=== PATIENT | male | born 1960 | race Caucasian/White ===

== ENCOUNTER 2018-04-15 23:38 | Emergency (ER) | payer MEDICAID, MEDICARE, OTHER ==
[2018-04-15 23:38] VITALS: BMI 35.4
[2018-04-16 00:03] VITALS: RESP 18; O2SAT 95
--- NOTE | 2018-04-16 00:18 | ED PDOC ---
Arrival/HPI - General Chief Complaint: Upper Extremity Problem/Injury Time Seen by Provider: 04/16/18 00:12 Historian: Patient - History of Present Illness Narrative History of Present Illness (Text): 04/16/18 00:14 This 57 yo male presents to this ED c/o right upper extremity pain x 4 days. Patient stated he tripped and fell down causing pain. Pain radiates from right hand to right shoulder. Patient is requesting x-rays. Patient denies syncope, dizziness, cp, abdominal pain, sob, skin abrasion, recent travel, weakness, paresthesias, or abnormal gait. Time/Duration: Other (see hpi) Quality: Aching Context: Home Past Medical History - Provider Review Nursing Documentation Reviewed: Yes - Infectious Disease Hx of Infectious Diseases: None - Cardiac Hx Cardiac Disorders: No Hx Pacemaker: Yes - Pulmonary Hx Respiratory Disorders: Yes Hx Chronic Obstructive Pulmonary Disease (COPD): Yes Other/Comment: history of trach placement for GBS - Neurological Other/Comment: guillain barre syndrome - Endocrine/Metabolic Hx Diabetes Mellitus Type 2: Yes - Psychiatric Hx Substance Use: No - Surgical History Other/Comment: tracheostomy - Anesthesia Hx Anesthesia: Yes Hx Anesthesia Reactions: No Hx Malignant Hyperthermia: No Family/Social History - Physician Review Nursing Documentation Reviewed: Yes Family/Social History: Other (noncontributory) Smoking Status: Heavy Smoker > 10 Cigarettes Daily Hx Alcohol Use: No Hx Substance Use: No Allergies/Home Meds Allergies/Adverse Reactions: Allergies No Known Allergies Allergy (Verified 04/16/18 02:12) Review of Systems - Review of Systems Constitutional: Normal. absent: Fatigue, Weight Change, Fevers, Night Sweats Eyes: Normal ENT: Normal Respiratory: Normal Cardiovascular: Normal Gastrointestinal: Normal Genitourinary Male: Normal Musculoskeletal: Other (see hpi) Skin: Normal Neurological: Normal Endocrine: Normal Hemo/Lymphatic: Normal Psychiatric: Normal Physical Exam Vital Signs Temp Pulse Resp BP Pulse Ox 04/16/18 01:35 98.1 F 68 18 116/60 95 04/15/18 23:58 98.7 F 69 18 117/69 95 Temperature: Afebrile Blood Pressure: Normal Pulse: Regular Respiratory Rate: Normal Appearance: Positive for: Well-Appearing, Non-Toxic, Comfortable Pain Distress: None Mental Status: Positive for: Alert and Oriented X 3 - Systems Exam Head: Present: Atraumatic, Normocephalic, Other (no esquivel sign. no raccoon sign) Pupils: Present: PERRL, Other (no hyphema) Extroacular Muscles: Present: EOMI. No: Entrapment Conjunctiva: Present: Normal Ears: Present: Normal, NORMAL TM, Other (no hemotympanum) Mouth: Present: Moist Mucous Membranes, Normal Lips, Normal Tounge. No: Drooling Pharnyx: Present: Normal. No: ERYTHEMA, EXUDATE, TONSILS ENLARGED Nose (External): Present: Atraumatic Nose (Internal): Present: Normal Inspection Neck: Present: Normal Range of Motion. No: Meningeal Signs, MIDLINE TENDERNESS Respiratory/Chest: No: Tender to Palpation Upper Extremity: Present: Normal Inspection, NORMAL PULSES, Neurovascularly Intact, Capillary Refill < 2s. No: Cyanosis, Edema, Normal ROM (decreased ROM righ upper extremity due to pain) Lower Extremity: Present: Normal Inspection. No: Edema, CALF TENDERNESS Neurological: Present: GCS=15, CN II-XII Intact, Speech Normal, Motor Func Grossly Intact, Normal Sensory Function, Normal Cerebellar Funct, Gait Normal, Memory Normal Skin: Present: Warm, Dry, Normal Color. No: Rashes Psychiatric: Present: Alert, Oriented x 3, Normal Insight, Normal Concentration Medical Decision Making ED Course and Treatment: 04/16/18 00:25 Patient refused pain medication at this time. 04/16/18 01:28 Re-evaluation. Patient feels better. Discussed results and plan with patient who expresses understanding. All questions answered and there is agreement with the plan to discharge home with instructions. Patient stable for discharge. Return if symptoms persist or worsen. Re-evaluation Time: 01:28 Reassessment Condition: Re-examined, Improved - RAD Interpretation Narrative RAD Interpretations (Text): 04/16/18 01:28 Hand x-rays: No fx forearm x-rays: No fx Humerus x-rays: No fx Radiology Orders: 04/16/18 00:12 HUMERUS RIGHT [RAD] Stat 04/16/18 00:13 FOREARM RIGHT [RAD] Stat 04/16/18 00:14 HAND RIGHT 3 VIEWS [RAD] Stat Disposition/Present on Arrival - Present on Arrival Any Indicators Present on Arrival: No History of DVT/PE: No History of Uncontrolled Diabetes: Yes Urinary Catheter: No History of Decub. Ulcer: No History Surgical Site Infection Following: None - Disposition Have Diagnosis and Disposition been Completed?: Yes Diagnosis: Wrist pain, Arm pain Disposition: HOME/ ROUTINE Disposition Time: :29 Patient Plan: Discharge Condition: GOOD Discharge Instructions (ExitCare): Common Wrist Injuries (The Basics) Additional Instructions: Call private doctor for follow up visit in 1-2 days. Take medication as instructed. Return to emergency if pain worsen Prescriptions: Ibuprofen [Motrin] 600 mg PO Q8 PRN #20 tab PRN Reason: Pain, Severe (8-10) traMADol [Ultram] 50 mg PO TID PRN #10 tab PRN Reason: Pain, Severe (8-10) Referrals: Javier Buckner DO [Staff Provider] - Follow up with primary Forms: [employer] (Romanian)
[2018-04-16 01:40] VITALS: BP 116/60; PULSE 68; TEMP 98.1
--- NOTE | 2018-04-16 08:28 | RAD ---
PROCEDURE: Radiographs of the right humerus. HISTORY: pain s/p fall COMPARISON: None. FINDINGS: BONES: No fracture or focal lesion. Greater tuberosity cortical and subcortical sclerotic productive changes. Posterior olecranon spurring SOFT TISSUES: Normal. OTHER FINDINGS: None. IMPRESSION: No fracture or dislocation appreciated. Degenerative changes as above
--- NOTE | 2018-04-16 08:34 | RAD ---
PROCEDURE: Radiographs of the Right Forearm HISTORY: pain s/p fall COMPARISON: None available. TECHNIQUE: Frontal and lateral views obtained. FINDINGS: BONES: No fracture or destructive lesion. JOINT SPACES: Radiocarpal and carpal metacarpal level joint space narrowing with osseous hypertrophic productive changes and subchondral sclerosis present. Wrist and elbow levels noted. OTHER FINDINGS: None. IMPRESSION: No fracture or dislocation Degenerative arthrosis -wrist and elbow levels.
--- NOTE | 2018-04-16 08:42 | RAD ---
PROCEDURE: Right Hand Radiographs. HISTORY: pain s/p fall COMPARISON: None. FINDINGS: BONES: Deformity of the 5th metacarpal base compatible with old healed fracture deformity here. Less chronic appearing 2 x 4 mm fracture fragment nondisplaced dorsal proximal phalanx - intraarticular extension suggested. Correlate clinically with point tenderness and mechanism of injury JOINTS: osteoarthritic changes mostly DIP joints but also other joints 2nd most notably affected metacarpal phalangeal joints. Carpal metacarpal and radiocarpal joints also affected. Fifth DIP joint held in flexion deformity SOFT TISSUES: Normal. OTHER FINDINGS: None. IMPRESSION: Less chronic appearing 2 x 4 mm fracture fragment nondisplaced dorsal proximal phalanx - intraarticular extension suggested. Correlate clinically with point tenderness and mechanism of injury Deformity of the 5th metacarpal base compatible with old healed fracture deformity here. Fifth DIP joint held in flexion deformity Comments: Discrepancy results type denote for PA review
== END 2018-04-16 01:35 | disposition home or self-care (01) ==
LOC: ED 23:38
DX: M25.531 Pain in right wrist (principal); M79.601 Pain in right arm; E11.9 Type 2 diabetes mellitus without complications; F17.210 Nicotine dependence, cigarettes, uncomplicated